=== PATIENT | male | born 1970 | race American Indian/Alaskan Native ===

== ENCOUNTER 2017-08-23 01:57 | Emergency (ER) | payer OTHER ==
--- NOTE | 2017-08-23 04:04 | XRay Report ---
FINAL REPORT EXAM: XR FOOT 3+V LT HISTORY: Left lower leg pinned by fork lift, get report TECHNIQUE: Three views of the left foot were submitted. FINDINGS: There is no evidence of fracture or soft tissue injury. There is a small plantar calcaneal spur. IMPRESSION: Small plantar calcaneal spur. No evidence of fracture.
--- NOTE | 2017-08-23 04:05 | XRay Report ---
FINAL REPORT EXAM: XR KNEE 3V LT HISTORY: Left lower leg pinned by fork lift, get report TECHNIQUE: Three views of the left knee were submitted. FINDINGS: There is no evidence of acute fracture or soft tissue injury. There are multiple calcifications along the course of the patellar tendon and above the superior margin of the patella. There is mild infrapatellar soft tissue swelling anteriorly. IMPRESSION: Dystrophic calcifications in the quadriceps and patellar tendons. Mild infrapatellar anterior soft tissue swelling. No acute fracture identified.
--- NOTE | 2017-08-23 04:06 | XRay Report ---
FINAL REPORT EXAM: XR ANKLE 2V LT HISTORY: Left lower leg pinned by fork lift, get report TECHNIQUE: AP and lateral views of the left ankle were obtained FINDINGS: There is an acute nondisplaced obliquely oriented fracture through the mid diaphysis of the tibia. The adjacent fibula appears intact. The ankle mortise appears intact. The soft tissues otherwise well maintained. IMPRESSION: Acute obliquely oriented nondisplaced mid-diaphyseal fracture of the tibia.
--- NOTE | 2017-08-23 04:07 | XRay Report ---
FINAL REPORT EXAM: XR TIBIA FIBULA 2V LT HISTORY: Left lower leg pinned by fork lift, get report TECHNIQUE: Four views of the left tibia-fibula were obtained. FINDINGS: There is an acute oblique noted nondisplaced fracture of the mid-diaphysis of the tibia. There are no additional fractures. The ankle mortise appears intact. There is a small plantar calcaneal spur. The knee reveals extensive dystrophic calcifications in the popliteal tendon and the quadriceps tendon. IMPRESSION: Acute obliquely oriented nondisplaced mid-diaphyseal tibial fracture as described.
[2017-08-23] MEDS ORDERED: MORPHINE ONE (04:16)
[2017-08-23] MEDS ORDERED: ZOFRAN ODT ONE (04:17)
[2017-08-23] MEDS ORDERED: MORPHINE IM ONE (04:23)
[2017-08-23] MEDS ORDERED: ZOFRAN ODT PO ONE (04:23)
--- NOTE | 2017-08-23 04:54 | Emergency Department Report ---
ED Lower Extremity HPI - General Chief Complaint: Extremity Injury, Lower Stated Complaint: LT FOOT INJURY Time Seen by Provider: 08/23/17 04:37 Source: patient Mode of arrival: Ambulatory Limitations: No Limitations - History of Present Illness MD Complaint: leg injury Onset/Timin (around 1 AM this morning) -: Sudden Injury: Leg: Left, Knee: Left, Ankle: Left Type of Injury: blunt Place: work Severity: severe Severity scale (0 -10): 10 Improves With: other (gave him Morphine) Worsens With: weight bearing, movement, palpation Context: direct blow (by fork lift) Associated Symptoms: swelling, unable to bear weight - Related Data Previous Rx's Medication Instructions Recorded Last Taken Type Ibuprofen [Motrin] 800 mg PO Q8HR PRN #28 tablet 08/23/17 Unknown Rx oxyCODONE /ACETAMINOPHEN [Percocet 1 tab PO Q6HR PRN #24 tablet 08/23/17 Unknown Rx 5/325] Allergies Allergy/AdvReac Type Severity Reaction Status Date / Time No Known Allergies Allergy Verified 08/23/17 02:30 ED Review of Systems ROS: Stated complaint: LT FOOT INJURY Other details as noted in HPI Constitutional: denies: chills, fever Eyes: denies: eye pain, eye discharge, vision change ENT: denies: ear pain, throat pain Respiratory: denies: cough, shortness of breath, wheezing Cardiovascular: denies: chest pain, palpitations Endocrine: no symptoms reported Gastrointestinal: denies: abdominal pain, nausea, diarrhea Genitourinary: denies: urgency, dysuria Musculoskeletal: as per HPI, arthralgia, myalgia. denies: back pain, joint swelling Skin: denies: rash, lesions Neurological: denies: headache, weakness, paresthesias Psychiatric: denies: anxiety, depression Hematological/Lymphatic: denies: easy bleeding, easy bruising ED Past Medical Hx - Past Medical History Previous Medical History?: No - Surgical History Past Surgical History?: No - Social History Smoking Status: Never Smoker Substance Use Type: Alcohol - Medications Home Medications: Home Medications Medication Instructions Recorded Confirmed Last Taken Type Ibuprofen [Motrin] 800 mg PO Q8HR PRN #28 tablet 08/23/17 Unknown Rx oxyCODONE /ACETAMINOPHEN [Percocet 1 tab PO Q6HR PRN #24 tablet 08/23/17 Unknown Rx 5/325] ED Physical Exam - General Limitations: No Limitations General appearance: alert, in no apparent distress - Head Head exam: Present: atraumatic, normocephalic - Eye Eye exam: Present: normal appearance - ENT ENT exam: Present: mucous membranes moist - Neck Neck exam: Present: normal inspection - Respiratory Respiratory exam: Present: normal lung sounds bilaterally. Absent: respiratory distress - Cardiovascular Cardiovascular Exam: Present: regular rate, normal rhythm. Absent: systolic murmur, diastolic murmur, rubs, gallop - GI/Abdominal GI/Abdominal exam: Present: soft, normal bowel sounds - Rectal Rectal exam: Present: deferred - Extremities Exam Extremities exam: Present: normal inspection - Expanded Lower Extremity Exam Left Hip exam: Present: swelling Upper Leg exam: Present: normal inspection Knee exam: Present: normal inspection Lower Leg exam: Present: tenderness, swelling Ankle exam: Present: normal inspection Foot/Toe exam: Present: normal inspection Neuro vascular tendon exam: Present: no vascular compromise, abnormal cap refill. Absent: pulse deficit, motor deficit, sensory deficit, tendon deficit, extremity cold to touch, pallor, abnormal 2-point discrimination, decreased fine /light touch, foot drop, peroneal nerve deficit, significant pain with passive ROM of distal joint Gait: Positive: unable to bear weight - Back Exam Back exam: Present: normal inspection - Neurological Exam Neurological exam: Present: alert, oriented X3 - Psychiatric Psychiatric exam: Present: normal affect, normal mood - Skin Skin exam: Present: warm, dry, intact, normal color. Absent: rash ED Course Vital Signs 08/23/17 02:15 Temperature 97.8 F Pulse Rate 63 Respiratory 16 Rate Blood Pressure 152/85 [Right] O2 Sat by Pulse 96 Oximetry - Orthopedic Splinting/Casting Injury #1 Side: left Lower Extremity Injury Location: lower leg Lower Extremity Immobilizer: posterior splint Other Orthopedic Equipment: crutches Critical care attestation.: If time is entered above; I have spent that time in minutes in the direct care of this critically ill patient, excluding procedure time. ED Disposition Clinical Impression: Tibia fracture Qualifiers: Encounter type: initial encounter Tibia location: shaft Fracture type: closed Fracture morphology: oblique Fracture alignment: nondisplaced Laterality: left Qualified Code(s): S82.235A - Nondisplaced oblique fracture of shaft of left tibia, initial encounter for closed fracture Disposition: TO HOME OR SELFCARE Is pt being admited?: No Does the pt Need Aspirin: No Condition: Fair Instructions: Leg Fracture (ED) Prescriptions: Ibuprofen [Motrin] 800 mg PO Q8HR PRN #28 tablet PRN Reason: Pain oxyCODONE /ACETAMINOPHEN [Percocet 5/325] 1 tab PO Q6HR PRN #24 tablet PRN Reason: Pain Referrals: FERN GILES MD [Staff Physician] - 2-3 Days PRIMARY CAREMD [Primary Care Provider] - 2-3 Days Time of Disposition: 05:05
[2017-08-23 06:42] VITALS: BP 129/76
== END 2017-08-23 06:38 | disposition home or self-care (01) ==
LOC: ED 01:57
DX: S82.235A Nondisplaced oblique fracture of shaft of left tibia, initial encounter for closed fracture (principal); X58.XXXA Exposure to other specified factors, initial encounter; Y93.89 Activity, other specified; Y92.89 Other specified places as the place of occurrence of the external cause; Y99.8 Other external cause status
CPT/HCPCS: 29515; 73562; 73590; 73600; 73630; 96372; 99283; J2270; Q0162